=== PATIENT | female | born 1960 | race Caucasian/White ===

== ENCOUNTER 2025-03-27 12:23 | Emergency (ER) | payer MEDICARE, MEDICAID, SELFPAY ==
--- NOTE | 2025-03-27 12:34 | PD.EDADULT ---
ED General RME/HPI General Chief complaint: Medical Clearance Stated complaint: [facility] CLEARANCE Time Seen by Provider: 03/27/25 12:33 Arrival date/time: 03/27/25 12:23 CC: Medical clearance HPI presents to the ER handcuffed with PD escort, patient has a history of hypertension admits she has not been taking medications for years. Patient does not take so much as an aspirin . She is awake alert oriented direct eye contact nonconfrontational does not appear in any acute distress. Related Data Previous Rx's ?Medication ?Instructions ?Recorded lisinopril 20 mg tablet 20 mg PO QDAY #30 tabs 08/12/24 metoprolol succinate 50 mg 50 mg PO QDAY #30 tabs 08/12/24 tablet,extended release 24 hr Allergies Allergy/AdvReac Type Severity Reaction Status Date / Time No Known Allergies Allergy Unknown Uncoded 08/12/24 11:33 Review of Systems Review of Systems Narrative Review of Systems: GEN: No fever, no chills, no weight loss EYES: No discharge, no visual changes, no pain HEENT: No ear pain, no congestion, no sore throat PULM: No shortness of breath, no cough, no congestion CV: No chest pain, no dyspnea on exertion, no palpitations GI: No nausea, no vomiting, no diarrhea, no pain, no constipation : No frequency, no urgency, no dysuria MUSC/SKEL: No joint pain, no back pain SKIN: No rash PSYCH: No hallucinations, no depression HEME/LYMPH: No easy bleeding or bruising tendencies NEURO: No weakness, no headache Past Medical History Past Medical History CARDIAC: Negative Congestive Heart Failure RESPIRATORY: Negative Chronic Obstructive Pulmonary Disease (COPD) GENITOURINARY: Negative Renal Disease ENDOCRINE: Negative Diabetes Mellitus Type 1 or Diabetes Mellitus Type 2 Social History SMOKING STATUS: Light (< 1 pack/day) ED Exam Narrative Physical exam: [General: Thin but not emaciated, appears not in any acute distress Head normocephalic HEENT: Eyes pupils are PERRLA EOMs are intact although the subsystems of HEENT are within acceptable limits Neck is supple nontender Chest equal chest rise nontender to palpation Respiratory: Clear to auscultation no wheezes crackles or rubs CV: Rate rhythm is regular no murmurs rubs or clicks Abdomen is flat, soft nontender no masses positive bowel sounds all 4 quadrants Back: No CVA tenderness no spinous process tenderness from cervical spine thoracic and lumbar spine Skin: Intact no petechiae rash induration ulceration or crepitus Extremities: Moving all extremity against resistance cap refill less than 2 seconds neurosensory intact Neuro: Awake alert oriented x3 Glascow coma 15 no focal deficits] Course Course Course Narrative: 1400 was notified by the nurse that the patient had spit out the pills that were given to her at the last round. After augustine discussion offering injections versus pills the patient states I do not like shots . PD sitting next to her junior account manager playing yes or no if she wanted the pills patient states she be willing to take the pills again. Quality Measures none Orders Category Date Time Status cloNIDine HCL [Catapres] Med 03/27/25 12:34 Discontinued 0.2 mg PO X1 ONE cloNIDine HCL [Catapres] Med 03/27/25 13:14 Discontinued 0.2 mg PO X1 ONE cloNIDine HCL [Catapres] Med 03/27/25 14:03 Discontinued 0.2 mg PO X1 ONE hydrALAZINE HCL [Apresoline] Med 03/27/25 13:14 Discontinued 25 mg PO X1 ONE hydrALAZINE HCL [Apresoline] Med 03/27/25 14:03 Discontinued 25 mg PO X1 ONE Vital Signs Vital signs: Vital Signs Temperature 98.5 F 03/27/25 12:37 Pulse Rate 86 03/27/25 12:37 Respiratory Rate 18 03/27/25 12:37 Blood Pressure 189/128 H 03/27/25 12:37 Pulse Oximetry (%) 97 03/27/25 12:37 Oxygen Delivery Method Room Air 03/27/25 12:37 Discharge Plan Plan Patient Disposition: HOME (Self Care) Patient condition on transfer: Stable Prescriptions/Referrals Prescriptions/Med Rec: No Action lisinopril 20 mg tablet 20 mg PO QDAY Qty: 30 0RF metoprolol succinate 50 mg tablet extended release 24 hr 50 mg PO QDAY Qty: 30 0RF Referrals: No Primary/Family,Physician [Primary Care Provider] - In 1 week Problem List Clinical Impression: Medical clearance for incarceration, Hypertension Patient/Caregiver Discharge Instructions Print Language: Bengali Stand Alone Forms: Estelle Award Info., Patient Portal Info Letter PA/DRAFTING INSTRUCTOR Supervising Physician PA/DRAFTING INSTRUCTOR Supervising Physician: Tez SHULTZ Clinical Information Provided by: patient Medical Records reviewed [facility] Meds/Rx considered, not ordered None Labs/Rad/Tests considered, not ordered None EKG EKG not done Labs Labs: none Imaging Imaging Interpretation(s): None Medication Administration(s) none Medication Administration History Discontinued Medications Clonidine (Clonidine Hcl 0.1 Mg Tablet) 0.2 mg PO X1 ONE Stop: 03/27/25 12:35 Last Admin: 03/27/25 12:40 Dose: 0.2 mg Documented By: BRENNON Clonidine (Clonidine Hcl 0.1 Mg Tablet) 0.2 mg PO X1 ONE Stop: 03/27/25 13:15 Last Admin: 03/27/25 14:15 Dose: Not Given Documented By: BRENNON Non-Admin Reason: Contaminated/Dropped Comments: PT SPIT OUT THE MEDICATION Clonidine (Clonidine Hcl 0.1 Mg Tablet) 0.2 mg PO X1 ONE Stop: 03/27/25 14:04 Last Admin: 03/27/25 14:12 Dose: 0.2 mg Documented By: BRENNON Hydralazine HCl (Hydralazine Hcl 25 Mg Tablet) 25 mg PO X1 ONE Stop: 03/27/25 13:15 Last Admin: 03/27/25 14:16 Dose: Not Given Documented By: BRENNON Non-Admin Reason: Contaminated/Dropped Comments: PT SPIT OUT THE MEDICATION Hydralazine HCl (Hydralazine Hcl 25 Mg Tablet) 25 mg PO X1 ONE Stop: 03/27/25 14:04 Last Admin: 03/27/25 14:13 Dose: 25 mg Documented By: BRENNON None Diagnosis Differential Diagnosis ED Complaint MDM: Hypertension secondary to medication noncompliance hypertensive emergency h
[2025-03-27 12:37] VITALS: BP 189/128; PULSE 86; RESP 18; TEMP 36.9; O2SAT 97
[2025-03-27 12:40] VITALS: BP 189/128; PULSE 86
[2025-03-27] MEDS: cloNIDine HCL 0.1 MG TABLET 0.2 MG PO ×2 (12:40→14:12)
[2025-03-27 12:42] VITALS: BMI 25.4
[2025-03-27 14:12] VITALS: BP 162/102; PULSE 65
[2025-03-27 14:13] VITALS: BP 162/102; BP 173/99; PULSE 65; PULSE 73; RESP 17; TEMP 36.4; O2SAT 96
[2025-03-27] MEDS: hydrALAZINE HCL 25 MG TABLET PO (14:13)
[2025-03-27 14:34] VITALS: BP 134/75; PULSE 71; RESP 16; TEMP 36.7; O2SAT 97
[2025-03-27 14:44] VITALS: BP 134/75; PULSE 68; RESP 16; TEMP 36.7; O2SAT 99
== END 2025-03-27 14:44 | disposition home or self-care (01) ==
PROVIDERS: Emergency Provider Emergency Medicine
DX: Z02.89 Encounter for other administrative examinations (principal); I10 Essential (primary) hypertension; F17.210 Nicotine dependence, cigarettes, uncomplicated
CPT/HCPCS: 99282; A9270

== ENCOUNTER 2025-05-27 12:00 | Emergency (ER) | payer MEDICARE, MEDICAID, SELFPAY ==
[2025-05-27 12:08] VITALS: BP 215/117; PULSE 81; RESP 19; TEMP 36.5; O2SAT 97
--- NOTE | 2025-05-27 12:10 | EKG_ITS ---
[facility] Test Date: 2025-05-27 Pat Name: SONAM BENITEZ Department: Room: - Gender: Female Sheriffs Detective: : 1960 Requested By: Saarhi Hurtado Order Number: [id number] Reading MD: Sarahi Hurtado Measurements Intervals [place] Rate: 82 P: 9 CA: 147 QRS: 18 QRSD: 120 T: 61 QT: 401 QTc: 469 Interpretive Statements SINUS RHYTHM POSSIBLE LEFT ATRIAL ENLARGEMENT [-0.1mV P-WAVE IN V1/V2] POSSIBLE LEFT VENTRICULAR HYPERTROPHY [VOLTAGE CRITERIA PLUS LAE OR QRS WIDENING] Compared to ECG 05/09/2024 12:38:50 No significant changes /[id number]/S0/[id number].pdf
--- NOTE | 2025-05-27 12:11 | EDNOTE_ITS ---
ED Medical Clearance RME/HPI General Chief complaint: Medical Clearance Stated complaint: [facility] Time Seen by Provider: 05/27/25 12:09 Source: patient and police Arrival date/time: 05/27/25 12:00 Mode of arrival: ambulatory Limitations: no limitations RME / HPI RME / HPI Narrative: 65-year-old female was brought in by police for medical clearance due to her hy pertension. She has a history of hypertension, and methamphetamine use. She was arrested on warrants an in possession of methamphetamine. She is found to be hypertensive, she has no other acute medical complaints. She denies any falls or injuries. Has had no near syncopal episodes. No unilateral weakness or paresthesias. Related Information Previous Rx's ?Medication ?Instructions ?Recorded lisinopril 20 mg tablet 20 mg PO QDAY #30 tabs 08/12 metoprolol succinate 50 mg 50 mg PO QDAY #30 tabs 07/25 tablet,extended release 24 hr Allergies Allergy/AdvReac Type Severity Reaction Status Date / Time No Known Allergies Allergy Verified 05/27/25 12:34 Review of Systems Review of Systems Systems Reviewed: All systems reviewed, normal except as documented ED Exam General Limitations: Present no limitations General appearance: Present alert, in no apparent distress and other (Unkempt) Head Head exam: Present atraumatic Eye Eye exam: Present normal appearance, PERRL and EOMI ENT ENT exam: Present normal exam, normal oropharynx and mucous membranes moist Neck Neck exam: Present normal inspection, full ROM and trachea midline Chest Chest inspection: Present normal inspection and symmetric chest wall rise Respiratory Respiratory exam: Present normal lung sounds bilaterally Cardiovascular Cardiovascular exam: Present regular rate, normal rhythm, normal heart sounds and other (+1 pretibial edema bilaterally) Abdominal Exam Abdominal exam: Present soft and normal bowel sounds Extremities Exam Extremities exam: Present normal inspection and full ROM Back Exam Back exam: Present normal inspection and full ROM Neurological Exam Neurological exam: Present alert and oriented X3; Absent motor sensory deficit Psychiatric Psychiatric exam: Present other (Affect is flat) Skin Skin exam: Present warm, dry, intact and normal color Course Quality Measures none Orders Category Date Time Status EKG (ED ONLY) *Do not use* NOW Care 05/27/25 12:10 Completed EKG (ED Only) Stat Exams 05/27/25 12:10 Draft BNP [B-Type Natriuretic Peptide] Stat Lab 05/27/25 12:32 Completed CBC Stat Lab 05/27/25 12:32 Completed CMP [Comprehensive Metabolic Panel] Stat Lab 05/27/25 12:32 Completed UA [Urinalysis] Stat Lab 05/27/25 12:11 Ordered hydrALAZINE INJ [Apresoline Inj] Med 05/27/25 12:10 Discontinued 20 mg IM X1 ONE Vital Signs Vital signs: Vital Signs Temperature 97.7 F 05/27/25 12:08 Pulse Rate 81 05/27/25 12:08 Respiratory Rate 19 05/27/25 12:08 Blood Pressure 215/117 H 05/27/25 12:08 Pulse Oximetry (%) 97 05/27/25 12:08 Oxygen Delivery Method Room Air 05/27/25 12:08 Medical Clearance MDM Narrative MDM Narrative:: 65-year-old female was brought in by police for medical clearance due to her hyp ertension. She has a history of hypertension, and methamphetamine use. She was arrested on warrants an in possession of methamphetamine. She is found to be hypertensive, she has no other acute medical complaints. She denies any falls or injuries. Has had no near syncopal episodes. No unilateral weakness or paresthesias. On exam patient is nontoxic-appearing. She is answer questions appropriately. Her blood pressure was reduced here using hydralazine. Workup was unremarkable. She will be discharged and medically cleared for police custody. Patient data External records reviewed:: [facility] previous records Clinical information provided by:: patient and law enforcement Social determinants that could affect healthcare access:: substance use Patient has the following chronic illnesses:: Hypertension How is presenting disease/condition affected by chronic disease/condition?: exacerbated by Evaluation data The following diagnostics were reviewed and interpreted by me:: lab results (No metabolic derangement or evidence of endorgan dysfunction) and EKG tracing(s) (Normal sinus rhythm at 82 beats minute with no ST changes or dynamic T waves. Voltage criteria met for LVH.) Lab and/or radiology exams considered but not ordered:: n/a Interpretation Summary: No metabolic derangement or evidence of endorgan dysfunction Medications / Prescriptions Medications or Prescriptions considered but not ordered:: n/a Medication administrations:: Medication Administration History Discontinued Medications Hydralazine HCl (Hydralazine Inj 20 Mg/Ml Vial) 20 mg IM X1 ONE Stop: 05/27/25 12:11 Last Admin: 05/27/25 12:17 Dose: 20 mg Documented By: DB See above Consultations Consultation(s) initiated? (list below): No Diagnosis Medical Clearance Differential Diagnosis: other (Hypertension, hypertensive urgency,) Most likely diagnosis given after review of the tests above:: Hypertension, medical clearance Admission Indicated Admission indicated?: not indicated Admission Request Was there a request for admission?: No Disposition Plan Disposition Plan: Discharge Discharge Attestation Discharge Attestation: The patient and all family members were given an opportunity to ask questions and understood the discharge instructions. Discharge instructions specifically effects, indications for sooner follow up or return to the emergency department, and the expected course of current diagnosis. Patient condition: Stable Discharge Plan Plan Patient Disposition: Shelter/Court/Law Patient condition on transfer: Stable Prescriptions/Referrals Prescriptions/Med Rec: No Action lisinopril 20 mg tablet 20 mg PO QDAY Qty: 30 0RF metoprolol succinate 50 mg tablet extended release 24 hr 50 mg PO QDAY Qty: 30 0RF Referrals: No Primary/Family,Physician [Primary Care Provider] - In 1 week Problem List Clinical Impression: Hypertension, Medical clearance for incarceration Patient/Caregiver Discharge Instructions Education Materials: ED Hypertension, Established Additional Instructions: - Follow-up in clinic for your hypertension management. - Please return to the emergency room at anytime for any worsening or emergent changes. Print Language: Ukrainian
[2025-05-27 12:17] VITALS: BP 202/113; PULSE 76
[2025-05-27] MEDS: hydrALAZINE INJ 20 MG/ML VIAL IM (12:17)
[2025-05-27 12:26] VITALS: BMI 25.1
[2025-05-27 12:49] LABS: Basophils # (Auto) 0.0 Thou/mm3 (0.0-0.2); Basophils % (Auto) 0 % (0-2.5); Eosinophils # (Auto) 0.1 Thou/mm3 (0.0-0.5); Eosinophils % (Auto) 2 % (0-10); Hematocrit 48.5 % (36.0-46.0); Hemoglobin 15.4 g/dL (12.0-16.0); Immature Granulocytes Auto 0.02 Thou/mm3 (0.00-0.00); Lymphocytes # (Auto) 1.4 Thou/mm3 (1.0-4.8); Lymphocytes % (Auto) 25 % (10-50); Mean Corpuscular HGB Conc 31.8 g/dl (31.0-37.0); Mean Corpuscular Hemoglobin 27.4 pg (25.0-35.0); Mean Corpuscular Volume 86 fL (80-100); Monocytes # (Auto) 0.5 Thou/mm3 (0.0-0.8); Monocytes % (Auto) 8 % (0-12); Neutrophils # (Auto) 3.7 Thou/mm3 (1.8-7.7); Neutrophils % (Auto) 65 % (37-80); Nucleated Red Blood Cell # 0.00 Thou/mm3 (0.00-0.00); Nucleated Red Blood Cell % 0 /100 WBC (0); Platelet Count 216 Thou/mm3 (140-440); RDW Standard Deviation 41.9 fL (36.4-46.3); Red Blood Count 5.62 Miln/mm3 (4.00-5.20); White Blood Count 5.7 Thou/mm3 (3.6-11.0)
[2025-05-27 13:10] LABS: B-Type Natriuretic Peptide 122 pg/mL (0-100)
[2025-05-27 13:11] LABS: Alanine Aminotransferase 15 U/L (10-49); Albumin, Serum 3.9 gm/dL (3.4-4.8); Albumin/Globulin Ratio 1.2 (1.2-2.2); Alkaline Phosphatase 99 U/L (46-116); Anion Gap 12 (7-16); Aspartate Amino Transferase 27 U/L (0-34); BUN/Creatinine Ratio 13 Ratio (12-20); Bilirubin,Total 0.7 mg/dL (0.3-1.2); Blood Urea Nitrogen 10 mg/dL (9-23); Calcium 8.9 mg/dL (8.3-10.6); Calcium (Corrected) 9.0 mg/dL (8.5-10.1); Carbon Dioxide 24.5 mMol/L (20.0-31.0); Chloride 107 mMol/L (98-107); Creatinine (Component) 0.8 mg/dL (0.6-1.3); Estimated Creatinine Clearance 61.6 mL/min (>60); Globulin 3.2 gm/dL (2.3-3.5); Glucose 112 mg/dL (74-106); Osmolality,Calculated 284 (275-295); Potassium 4.0 mMol/L (3.4-5.1); Sodium 143 mMol/L (136-145); Total Protein 7.1 gm/dL (5.7-8.2); eGFR > 60 See Note
[2025-05-27 13:14] VITALS: BP 183/135; PULSE 79; RESP 16; O2SAT 97
[2025-05-27 13:26] VITALS: BP 176/100; PULSE 87; RESP 16; TEMP 36.6; O2SAT 97
== END 2025-05-27 13:27 ==
PROVIDERS: Physician Assistant Medical; Emergency Provider Emergency Medicine
DX: Z02.89 Encounter for other administrative examinations (principal); I10 Essential (primary) hypertension; R94.31 Abnormal electrocardiogram [ECG] [EKG]
CPT/HCPCS: 36415; 80053; 81001; 83880; 85025; 93005; 99283; J0360

== ENCOUNTER 2025-10-26 08:09 | Emergency (ER) | payer MEDICARE, MEDICAID, SELFPAY ==
[2025-10-26 08:43] VITALS: PULSE 89; RESP 17
[2025-10-26 08:46] VITALS: BMI 27.3
[2025-10-26 08:47] VITALS: BP 179/91; PULSE 71; RESP 17; TEMP 36.6; O2SAT 96
--- NOTE | 2025-10-26 10:10 | XR_ITS ---
Examination: CT abdomen and pelvis without contrast. Coronal 3-D reconstructions. Sagittal 2-D reconstructions. Date and time of exam: October 26, 2025, 10:29 a.m., comparison July 23, 2005 INDICATIONS: Onset right lower abdominal pain today CTDI: vol (mGy): 7.66 DLP: (mGycm): 426 Technique: Axial images of the abdomen have been obtained, 3 mm slice thickness Intravenous contrast material has not been administered. Low dose protocols were performed. One or more of the following dose reduction techniques were used; automated exposure control, adjustment of the mA and/or KV according to patient size, use of iterative reconstruction technique. Findings: Mild enlargement cardiac contour Small retrocardiac gastric hernia Hepatomegaly 20 cm No focal liver or splenic lesions Gallstones No pancreatic or adrenal mass Moderate renal scar formation 1 to 2 mm bilateral renal calculi, no hydronephrosis or ureteral calculi Normal appendix Large left common femoral hernia containing bowel, colon and small bowel, but no incarcerated bowel Severe osteopenia IMPRESSION: Cholelithiasis, negative for cholecystitis Bilateral nonobstructing renal calculi Large left common femoral hernia defect containing colon and small bowel but no incarcerated bowel
--- NOTE | 2025-10-26 10:17 | XR_ITS ---
EXAMINATION: AP chest single view TECHNIQUE: AP upright portable chest single view Date and time: October 26, 2025, 1039 hours, comparison May 09, 2024 INDICATIONS: Coughing beginning 1 week ago. FINDINGS: Normal heart size Accentuation of bronchovascular markings. No lobar pneumonia or pulmonary edema. Severe osteopenia IMPRESSION: Bronchitis pattern
[2025-10-26] MEDS: ONDANSETRON INJ 2 MG/ML INJ 2 ML 4 MG IVP (10:18)
[2025-10-26] MEDS: MORPHINE SULF INJ 4 MG/ML VIAL IVP (10:19)
[2025-10-26] MEDS: SODIUM CHLORIDE 0.9% 1000 ML 1,000 ML 999 ML IV (10:19)
--- NOTE | 2025-10-26 11:07 | EDNOTE_ITS ---
ED Abdominal Pain RME/HPI General Chief Complaint: Abdominal Pain Stated complaint: ABDOMINAL PAIN Time seen by provider: 10/26/25 09:23 Arrival date/time: 10/26/25 08:09 Limitations: no limitations RME / HPI RME / HPI narrative: 65 year old female with history of hypertension presents to the ED [facility]IB[facility] from the homeless [facility] for evaluation of abdominal pain beginning this morning. Described as aching in sensation that is located throughout, rating 9/10 in severity. Accompanied by nausea. No other associated symptoms or complaints reported. Denies fevers, chills, sweats, chest pain, cough, shortness of breath, diarrhea, constipation, or urinary symptoms. Related Data Previous Rx's ?Medication ?Instructions ?Recorded lisinopril 20 mg tablet 20 mg PO QDAY #30 tabs 08/12 metoprolol succinate 50 mg 50 mg PO QDAY #30 tabs 07/25 tablet,extended release 24 hr amoxicillin 875 mg-potassium 1 tab PO BID bronchitis # 20 tabs 10/26/25 clavulanate 125 mg tablet Allergies Allergy/AdvReac Type Severity Reaction Status Date / Time No Known Allergies Allergy Verified 10/26/25 08:47 Review of Systems Review of Systems Systems Reviewed: All systems reviewed, normal except as documented Past Medical History Past Medical History NEUROLOGIC: Positive Cerebrovascular Accident (PT STATED I HAVE A STROKE A LONG TIME AGO ) CARDIAC: Positive Hypertension GASTROINTESTINAL: Positive Hepatitis (HEPATITIS C) Social History SMOKING STATUS: Light (< 1 pack/day) ED Exam General Limitations: Present no limitations General appearance: Present alert and in no apparent distress Head Head exam: Present atraumatic Eye Eye exam: Present normal appearance, PERRL and EOMI ENT ENT exam: Present normal exam, normal oropharynx and mucous membranes moist Neck Neck exam: Present normal inspection, full ROM and trachea midline Chest Chest inspection: Present normal inspection and symmetric chest wall rise Respiratory Respiratory exam: Present normal lung sounds bilaterally Cardiovascular Cardiovascular exam: Present regular rate, normal rhythm and normal heart sounds Abdominal Exam Abdominal exam: Present soft and normal bowel sounds; Absent distention, tenderness, guarding, rebound or rigidity Extremities Exam Extremities exam: Present normal inspection and full ROM Back Exam Back exam: Present normal inspection and full ROM Neurological Exam Neurological exam: Present alert, oriented X3 and CN II-XII intact Psychiatric Psychiatric exam: Present normal affect and normal mood Skin Skin exam: Present warm, dry, intact and normal color Course Quality Measures none Orders Category Date Time Status Shoe Stock Associate STAT Care 10/26/25 10:10 Active Continuous Pulse Oximetry STAT Care 10/26/25 10:10 Completed Insert IV STAT Care 10/26/25 10:10 Active NPO STAT Care 10/26/25 10:[address] abdomen pelvis wo con Stat Exams 10/26/25 10:10 Completed CXRP [XR chest 1V portable] Stat Exams 10/26/25 10:17 Completed CBC Stat Lab 10/26/25 10:40 Completed Comprehensive Metabolic Panel Stat Lab 10/26/25 10:40 Completed Lipase Stat Lab 10/26/25 10:40 Completed Magnesium Stat Lab 10/26/25 10:40 Completed Prothrombin Time with INR Stat Lab 10/26/25 10:40 Completed Urinalysis Stat Lab 10/26/25 10:10 Ordered Morphine* Inj Med 10/26/25 10:10 Discontinued 4 mg IVP X1 ONE Ondansetron Inj [Zofran Inj] Med 10/26/25 10:10 Active 4 mg IVP Q1H PRN Sodium Chloride 0.9% 1000 ml [Ns] 1,000 ml Med 10/26/25 10:10 Discontinued IV 999 mls/hr Vital Signs Vital signs: Vital Signs Temperature 97.8 F 10/26/25 08:47 Pulse Rate 71 10/26/25 08:47 Respiratory Rate 17 10/26/25 08:47 Blood Pressure 179/91 H 10/26/25 08:47 Pulse Oximetry (%) 96 10/26/25 08:47 Oxygen Delivery Method Room Air 10/26/25 08:47 Pulse ox is 96% on room air which is adequate. Abdominal Pain MDM MDM Narrative MDM Narrative:: Lorena Porter am scribing for and in the presence of Dr. Landers. Patient remains clinically stable throughout the emergency department visit. We reviewed all the results, analysis, and treatment plans. Patient is amenable to discharge. Strict return precautions were outlined. Patient data External records reviewed:: [facility] previous records Clinical information provided by:: patient Social determinants that could affect healthcare access:: substance use (methamphetamine ) Patient has the following chronic illnesses:: HTN How is presenting disease/condition affected by chronic disease/condition?: uneffected by Evaluation data The following diagnostics were reviewed and interpreted by me:: lab results and radiology exam(s) Lab and/or radiology exams considered but not ordered:: None Interpretation Summary: Ordering Physician: Mason Landers MD Date of Service: 10/26/25 Procedure(s): CT abdomen pelvis wo [facility] Accession Number(s): [id number] cc: Mason Landers MD; Braden Cosby MD; Renan Spence MD~ Examination: CT abdomen and pelvis without contrast. Coronal 3-D reconstructions. Sagittal 2-D reconstructions. Date and time of exam: October 26, 2025, 10:29 a.m., comparison July 23, 2005 INDICATIONS: Onset right lower abdominal pain today CTDI: vol (mGy): 7.66 DLP: (mGycm): 426 Technique: Axial images of the abdomen have been obtained, 3 mm slice thickness Intravenous contrast material has not been administered. Low dose protocols were performed. One or more of the following dose reduction techniques were used; automated exposure control, adjustment of the mA and/or KV according to patient size, use of iterative reconstruction technique. Findings: Mild enlargement cardiac contour Small retrocardiac gastric hernia Hepatomegaly 20 cm No focal liver or splenic lesions Gallstones No pancreatic or adrenal mass Moderate renal scar formation 1 to 2 mm bilateral renal calculi, no hydronephrosis or ureteral calculi Normal appendix Large left common femoral hernia containing bowel, colon and small bowel, but no incarcerated bowel Severe osteopenia IMPRESSION: Cholelithiasis, negative for cholecystitis Bilateral nonobstructing renal calculi Large left common femoral hernia defect containing colon and small bowel but no incarcerated bowel Dictated By: Renan Spence MD Signed By: <Electronically signed by Renan Spence MD in OV> 10/26/25 1122 Ordering Physician: Mason Landers MD Date of Service: 10/26/25 Procedure(s): XR chest 1V portable Accession Number(s): [id number] cc: Mason Landers MD; Braden Cosby MD; Renan Spence MD~ EXAMINATION: AP chest single view TECHNIQUE: AP upright portable chest single view Date and time: October 26, 2025, 1039 hours, comparison May 09, 2024 INDICATIONS: Coughing beginning 1 week ago. FINDINGS: Normal heart size Accentuation of bronchovascular markings. No lobar pneumonia or pulmonary edema. Severe osteopenia IMPRESSION: Bronchitis pattern Dictated By: Renan Spence MD Signed By: <Electronically signed by Renan Spence MD in OV> 10/26/25 1122 Medications / Prescriptions Medications or Prescriptions considered but not ordered:: None Medication administrations:: Medication Administration History Ondansetron HCl (Ondansetron Inj 2 Mg/Ml Inj 2 Ml) 4 mg IVP Q1H PRN PRN Reason: PERSISTENT NAUSEA OR VOMITING Last Admin: 10/26/25 10:18 Dose: 4 mg Documented By: VL Discontinued Medications Sodium Chloride (Ns) 1,000 mls @ 999 mls/hr IV .Q1H1M ONE Stop: 10/26/25 11:10 Last Infusion: 10/26/25 11:20 Dose: Infused Documented By: Admin: 10/26/25 10:19 Dose: 999 mls/hr Documented By: VL Morphine Sulfate (Morphine Sulf Inj 4 Mg/Ml Vial) 4 mg IVP X1 ONE Stop: 10/26/25 10:11 Last Admin: 10/26/25 10:19 Dose: 4 mg Documented By: NELSON See above Consultations Consultation(s) initiated? (list below): No Diagnosis Differential diagnosis abdominal pain: abdominal pain, calculus of kidney, constipation, diverticulitis and gastroenteritis Most likely diagnosis given after review of the tests above:: Abdominal pain Methamphetamine use Abdominal pain in female Admission Indicated Admission indicated?: not indicated Admission Request Was there a request for admission?: No Disposition Plan Disposition Plan: Discharge Discharge Attestation Discharge Attestation: The patient and all family members were given an opportunity to ask questions and understood the discharge instructions. Discharge instructions specifically effects, indications for sooner follow up or return to the emergency department, and the expected course of current diagnosis. Patient condition: Stable Discharge Plan Plan Patient Disposition: HOME (Self Care) Patient condition on transfer: Stable Prescriptions/Referrals Prescriptions/Med Rec: New amoxicillin-pot clavulanate 875-125 mg tablet 1 tab PO BID MDD 2 Qty: 20 0RF No Action lisinopril 20 mg tablet 20 mg PO QDAY Qty: 30 0RF metoprolol succinate 50 mg tablet extended release 24 hr 50 mg PO QDAY Qty: 30 0RF Referrals: Braden Cosby MD [Primary Care Provider, Family Practice] - In 1 week Problem List Clinical Impression: Abdominal pain, Methamphetamine use, Abdominal pain in female Patient/Caregiver Discharge Instructions Discharge Activity: activity as tolerated Education Materials: Abdominal Pain, Understanding the Pain Response, Understanding Methamphetamine ... Additional Instructions: Please stop using methamphetamine. Follow-up with your doctor in 2 days. Print Language: Syriac Stand Alone Forms: Estelle Award Info., Patient Portal Info Letter
[2025-10-26 11:14] LABS: Basophils # (Auto) 0.0 Thou/mm3 (0.0-0.2); Basophils % (Auto) 0 % (0-2.5); Eosinophils # (Auto) 0.1 Thou/mm3 (0.0-0.5); Eosinophils % (Auto) 1 % (0-10); Hematocrit 50.4 % (36.0-46.0); Hemoglobin 15.6 g/dL (12.0-16.0); Immature Granulocytes Auto 0.03 Thou/mm3 (0.00-0.00); Lymphocytes # (Auto) 1.3 Thou/mm3 (1.0-4.8); Lymphocytes % (Auto) 18 % (10-50); Mean Corpuscular HGB Conc 31.0 g/dl (31.0-37.0); Mean Corpuscular Hemoglobin 27.2 pg (25.0-35.0); Mean Corpuscular Volume 88 fL (80-100); Monocytes # (Auto) 0.6 Thou/mm3 (0.0-0.8); Monocytes % (Auto) 9 % (0-12); Neutrophils # (Auto) 5.2 Thou/mm3 (1.8-7.7); Neutrophils % (Auto) 71 % (37-80); Nucleated Red Blood Cell # 0.00 Thou/mm3 (0.00-0.00); Nucleated Red Blood Cell % 0 /100 WBC (0); Platelet Count 205 Thou/mm3 (140-440); RDW Standard Deviation 42.0 fL (36.4-46.3); Red Blood Count 5.73 Miln/mm3 (4.00-5.20); White Blood Count 7.3 Thou/mm3 (3.6-11.0)
[2025-10-26 11:21] LABS: INR 1.0 (0.9-1.3); Prothrombin Time 10.7 Seconds (9.0-12.2)
[2025-10-26 11:26] LABS: Alanine Aminotransferase 18 U/L (10-49); Albumin, Serum 4.3 gm/dL (3.4-4.8); Albumin/Globulin Ratio 1.3 (1.2-2.2); Alkaline Phosphatase 104 U/L (46-116); Anion Gap 9 (7-16); Aspartate Amino Transferase 26 U/L (0-34); BUN/Creatinine Ratio 18 Ratio (12-20); Bilirubin,Total 0.8 mg/dL (0.3-1.2); Blood Urea Nitrogen 16 mg/dL (9-23); Calcium 9.4 mg/dL (8.3-10.6); Calcium (Corrected) 9.4 mg/dL (8.5-10.1); Carbon Dioxide 30.5 mMol/L (20.0-31.0); Chloride 106 mMol/L (98-107); Creatinine (Component) 0.9 mg/dL (0.6-1.3); Estimated Creatinine Clearance 56.9 mL/min (>60); Globulin 3.4 gm/dL (2.3-3.5); Glucose 83 mg/dL (74-106); Lipase 32 U/L (12-53); Magnesium 1.9 mg/dL (1.6-2.6); Osmolality,Calculated 288 (275-295); Potassium 3.9 mMol/L (3.4-5.1); Sodium 145 mMol/L (136-145); Total Protein 7.7 gm/dL (5.7-8.2); eGFR > 60 See Note
[2025-10-26 11:32] VITALS: BP 180/94; PULSE 79; RESP 17; TEMP 36.7; O2SAT 92
[2025-10-26 12:09] VITALS: BP 161/91; PULSE 74; PULSE 76; RESP 19; O2SAT 100
[2025-10-26 12:38] VITALS: BP 161/90; PULSE 72; RESP 18; TEMP 36.7; O2SAT 92
[2025-10-26 14:31] VITALS: BP 141/80; PULSE 76; RESP 19; TEMP 36.9; O2SAT 97
== END 2025-10-26 14:35 | disposition home or self-care (01) ==
PROVIDERS: Emergency Provider Family Medicine; PCP Family Medicine
DX: K80.20 Calculus of gallbladder without cholecystitis without obstruction (principal); N20.0 Calculus of kidney; K41.90 Unilateral femoral hernia, without obstruction or gangrene, not specified as recurrent; F15.90 Other stimulant use, unspecified, uncomplicated; R05.9 Cough, unspecified; Z59.01 Sheltered homelessness
CPT/HCPCS: 36415; 71045; 74176; 80053; 81001; 83690; 83735; 85025; 85610; 96361; 96374; 96375; 99284; J2270; J2405; J7030